=== PATIENT | female | born 1970 | race Caucasian/White ===

== ENCOUNTER 2019-01-16 20:16 | Emergency (ER) | payer OTHER ==
[~2019-01-16] VITALS: Ht 160 cm; Wt 60.1 kg
[~2019-01-16 20:16] MED LIST: CELE50CA PO; THYR15TA PO
--- NOTE | 2019-01-16 20:18 | NUR ---
PT. IN BATHROOM WHEN CALLED FOR TRIAGE.
--- NOTE | 2019-01-16 20:31 | NUR ---
PT. C/O CENTRAL ABD PAIN STARTING 30 MINUTES AGO. DENIES RADIATION OF THE PAIN. APPEARS VERY UNCOMFORTABLE. +N/V. DENIES DIARRHEA. LAST BM YESTERDAY. HX OF APPY. PROVIDED PT WITH GOWN, MONITORS APPLIED, SIDERAIL SUP X2, CALL LIGHT WITHIN REACH
[2019-01-16] MEDS ORDERED: LEVO25TA4 PO (20:37)
[2019-01-16] MEDS ORDERED: CITA10TA4 PO (20:37)
[2019-01-16] MEDS ORDERED: OXCA150T18 PO (20:37)
--- NOTE | 2019-01-16 20:43 | NUR ---
PT UP TO RR WITH STEADY GAIT
--- NOTE | 2019-01-16 20:49 | NUR ---
URINE SAMPLE SENT
[2019-01-16] MEDS ORDERED: HYDR200T72 PO (20:50)
[2019-01-16 21:14] LABS: MICROSCOPIC AUTO
[2019-01-16] MEDS ORDERED: MORPHINE SULFATE 4 MG/ML, 1ML ONE ×2 (21:14→22:06)
[2019-01-16] MEDS ORDERED: ONDANSETRON 2MG/ML, 2ML ONE (21:15)
[2019-01-16] MEDS: MORPHINE SULFATE 4 MG/ML, 1ML IVPush PRN ×2 (21:17→22:08)
[2019-01-16 21:18] LABS: BASOPHILS # (AUTO) 0.03 x10^3/uL (0-0.1); BASOPHILS % (AUTO) 1 % (0-1); EOSINOPHILS # (AUTO) 0.02 x10^3/uL (0-0.4); EOSINOPHILS % (AUTO) 1 % (1-7); LYMPHOCYTES % (AUTO) 23 % (22-44); MD NO; MEAN CORPUSCULAR HEMOGLOBIN 28.6 pg (27.0-34.8); MEAN CORPUSCULAR HGB CONC 32.9 g/dL (32.4-35.8); MEAN CORPUSCULAR VOLUME 87.1 fL (80-100); MEAN PLATELET VOLUME 7.9 fL (7.4-10.4); MONOCYTES # (AUTO) 0.48 x10^3/uL (0.2-0.8); MONOCYTES % (AUTO) 12 % (2-9); NEUTROPHILS # (AUTO) 2.54 x10^3/uL (1.8-6.8); NEUTROPHILS % (AUTO) 64 % (42-75); PLATELET COUNT 157 x10^3/uL (130-400); RED CELL DISTRIBUTION WIDTH 15.9 % (9.6-15.2)
[2019-01-16 21:18] LABS: CULTURE INDICATED? YES
--- NOTE | 2019-01-16 21:20 | NUR ---
PT MEDICATED PER MAR
[2019-01-16 21:27] LABS: ALBUMIN 3.7 g/dL (3.4-5.0); ANION GAP 6 mmol/L (5-15); CHLORIDE 99 mmol/L (98-107)
[2019-01-16] MEDS ORDERED: SODIUM CHLORIDE FLUSH 10ML SYR IVF ONE (21:30)
[2019-01-16] MEDS ORDERED: ONDANSETRON 2MG/ML, 2ML IVPush ONE (21:30)
[2019-01-16 21:33] LABS: ALANINE AMINOTRANSFERASE 32 U/L (12-78); ALKALINE PHOSPHATASE 89 U/L (45-117); BILIRUBIN,TOTAL 0.5 mg/dL (0.2-1.0); TOTAL PROTEIN 6.4 g/dL (6.4-8.2)
--- NOTE | 2019-01-16 22:02 | NUR ---
PT RESTING CALMLY, C/O CONTINUED ABD PAIN, PT REFUSES NEED FOR JORGE LUIS MEDICATION AT THIS TIME, PROVIDED PT WITH MOUTH SWABS PER HER REQUEST, DENIES GURTHER NEED. MONITORS IN PLACE, CALL LIGHT WITHIN REACH. CHART UP FOR RECHECK
--- NOTE | 2019-01-16 22:07 | NUR ---
PT NOW REQUESTING MORPHINE FOR HER PAIN, PT MEDICATED , SEE MAR
[2019-01-16] MEDS ORDERED: MAALOX/HYOSCYAMINE/LIDOCAINE 45 ML BTL ONE (22:40)
--- NOTE | 2019-01-16 22:43 | NUR ---
PT MEDICATED PER MAR
[2019-01-16] MEDS ORDERED: MAALOX/HYOSCYAMINE/LIDOCAINE 45 ML BTL PO ONE (23:00)
[2019-01-16 23:37] VITALS: BP 120/70
== END 2019-01-16 23:39 | disposition home or self-care (01) ==
LOC: ED 22:24
DX: K29.00 Acute gastritis without bleeding (principal); N30.00 Acute cystitis without hematuria; Z90.49 Acquired absence of other specified parts of digestive tract
CPT/HCPCS: 36415; 80053; 81001; 83690; 84703; 85025; 87077; 87086; 87186; 93005; 96374; 96375; 96376; 99284; J2270; J2405